=== PATIENT | female | born 1950 | race Caucasian/White ===

== ENCOUNTER → 2016-04-25 | Outpatient (CLI) | payer OTHER ==
--- NOTE | ~2016-04-25 | PFT ---
[id number] [facility] [address] [place], [place] [address] [id number] O MR#: [id number] NAME: ILENE PADILLA ROOM: SEX: F STUDY DATE/TIME: 05/04/2016 : 1950 AGE: 65 STUDY DESCRIPTION: Attending Physician: Pepper Martino M.D. Referring Physician: Asher Greer M.D. Primary Care Physician: Pepper Martino M.D. PULMONARY DIAGNOSTIC REPORT EXAM Pulmonary function test. FINDINGS Spirometry is suggestive of a moderate restrictive defect. There is no significant response to bronchodilators. Flow volume loop is consistent with a restrictive defect. Lung volumes confirm a restrictive defect with a total lung capacity at 72%. Diffusion capacity is reduced suggestive of an intrinsic restrictive defect such as pulmonary fibrosis and clinical evaluation is required. Dictated by... Yogesh Grewal M.D. MICHAEL/reyes TD: 05/04/2016 12:17 JOB #: [id number] PULMONARY DIAGNOSTIC REPORT
== END | disposition home or self-care (01) ==
LOC: CRC 10:43
DX: F17.200 Nicotine dependence, unspecified, uncomplicated (principal); R06.00 Dyspnea, unspecified
CPT/HCPCS: 94060; 94726; 94729

== ENCOUNTER → 2016-05-27 | Outpatient (CLI) | payer OTHER ==
--- NOTE | ~2016-05-27 | MY11 ---
[facility] A Service of [facility] RADIOLOGY TEXT RESULTS PATIENT: ILENE PADILLA LOCATION: [facility] : 50 UNIT #: [id number] AGE: [address]: Pepper Martino MD SEX: F ORDER DR: [id number] [facility] [address] [place], [place] [address] [id number] O MR#: [id number] Acc #: [id number] NAME: ILENE PADILLA : 1950 SEX: F STUDY DATE/TIME: 05/27/2016 14:46 UNIT: [facility] ROOM: STUDY DESCRIPTION: MY Mammogram Screening Dig Ramon Attending Physician: Pepper Martino M.D. Referring Physician: Pepper Martino M.D. Ordering Physician: Pepper Martino M.D. Primary Care Physician: Pepper Martino M.D. MEDICAL IMAGING REPORT This report is preliminary unless electronic signature is present EXAM Digital screening mammogram, 05/27/2016, [facility]. HISTORY 66-year-old woman no risk elevation. Annual screen. COMPARISON STUDIES 08/29/2007, 01/28/2009, 05/25/2015 FINDINGS Digital imaging of each breast was completed utilizing a two-view examination of each breast in craniocaudal and mediolateral-oblique projections. Review and interpretation of digital mammograms include a second review in conjunction with FDA-approved CAD device. There is a normal parenchymal presentation bilaterally consistent with the patient's age. There are no breast masses imaged and no parenchymal asymmetry is visualized. There are no suspicious microcalcifications and I see no focal architectural disturbance. IMPRESSION Negative screening digital mammogram. One-year followup recommended. Patients over the age of 40 are entered into a reminder system with target due date for the next mammogram. A result letter will also be sent to the patient. BIRADS: 1 Negative ADDENDUM Breast parenchyma is fatty replaced. [facility] A Service of [facility] & [facility] RADIOLOGY TEXT RESULTS PATIENT: ILENE PADILLA LOCATION: [facility] : 50 UNIT #: [id number] AGE: [address]: Pepper Martino MD SEX: F ORDER DR: Dictated by... Eddy Perea M.D. THIS IS AN ELECTRONICALLY VERIFIED REPORT Eddy Perea M.D. at 05/30/2016 8:06 AM ALEJANDRO/tiffanie TD: 05/27/2016 16:02 JOB #: [id number] MEDICAL IMAGING REPORT Page 1 of 1 COPY
== END | disposition home or self-care (01) ==
LOC: CWCC 14:27
DX: Z12.31 Encounter for screening mammogram for malignant neoplasm of breast (principal); R92.8 Other abnormal and inconclusive findings on diagnostic imaging of breast
CPT/HCPCS: G0202